=== PATIENT | female | born 2000 | race Two or more races ===

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

== ENCOUNTER 2023-07-25 10:13 | Outpatient (CLI) | payer OTHER ==
[~2023-07-25 10:13] MED LIST: DUI500 PO
== END 2023-07-25 10:23 | disposition home or self-care (01) ==
LOC: RAD 10:13
PROVIDERS: ATTEND Orthopaedic Surgery
DX: M41.125 Adolescent idiopathic scoliosis, thoracolumbar region (principal)